=== PATIENT | male | born 1950 | race African-American/Black ===

== ENCOUNTER 2019-10-05 15:40 | Emergency (ER) | payer OTHER, MEDICAID ==
[~2019-10-05] VITALS: Ht 167.6 cm; Wt 63.5 kg
[2019-10-05 16:17] VITALS: BP 158/78
--- NOTE | 2019-10-05 16:27 | NUR ---
PT PAN BLS TO ER BED 07
[2019-10-05] MEDS ORDERED: HYDROcodone/APAP 10/325 MG 1 TAB TAB PO ONE (16:30)
--- NOTE | 2019-10-05 16:37 | NUR ---
PO PAIN MEDS GIVEN-NADR AT THIS TIME
--- NOTE | 2019-10-05 16:49 | NUR ---
PT TO CT SCAN VIA [facility]
--- NOTE | 2019-10-05 17:18 | NUR ---
PT BACK FROM CT SCAN VIA [facility]
[2019-10-05] MEDS ORDERED: LIDOCAINE/EPI 1% 1:100000 20 ML VIAL INJ ONE (17:40)
--- NOTE | 2019-10-05 18:09 | NUR ---
DR LOERA AT BEDSIDE SUTURING PT.
[2019-10-05 19:10] VITALS: BP 159/82
--- NOTE | 2019-10-05 19:11 | NUR ---
Patient discharged with v/s stable. Written and verbal after care instructions given and explained. Patient alert, oriented and verbalized understanding of instructions. Ambulatory with steady gait. All questions addressed prior to discharge. ID band removed. Patient advised to follow up with PMD. Rx of NORCO 10MG given. Patient educated on indication of medication including possible reaction and side effects. Opportunity to ask questions provided and answered.
--- NOTE | 2019-10-05 19:11 | NUR ---
caterina muniz discharge pt.
== END 2019-10-05 19:11 | disposition home or self-care (01) ==
LOC: MED 15:40
DX: S02.2XXA Fracture of nasal bones, initial encounter for closed fracture (principal); S01.21XA Laceration without foreign body of nose, initial encounter; S01.01XA Laceration without foreign body of scalp, initial encounter; I10 Essential (primary) hypertension; E78.5 Hyperlipidemia, unspecified; E11.9 Type 2 diabetes mellitus without complications; J45.909 Unspecified asthma, uncomplicated; V89.2XXA Person injured in unspecified motor-vehicle accident, traffic, initial encounter; Y93.89 Activity, other specified; Y92.89 Other specified places as the place of occurrence of the external cause; Y99.8 Other external cause status
CPT/HCPCS: 12004; 12013; 70450; 70486; 72125; 99285; J2001

== ENCOUNTER 2019-10-06 15:26 | Emergency (ER) | payer OTHER, MEDICAID ==
[~2019-10-06] VITALS: Ht 165.1 cm; Wt 52.3 kg
--- NOTE | 2019-10-06 15:37 | NUR ---
Patient ambulated to bed 4. RN evaluating patient at bedside.
[2019-10-06] MEDS ORDERED: ONDANSETRON 4 MG/2 ML VIAL IVP ONE (15:50)
[2019-10-06] MEDS ORDERED: MORPHINE SULFATE 4 MG/ML SYR IVP ONE (15:50)
[2019-10-06] MEDS ORDERED: MORPHINE SULFATE 4 MG/ML SYR ONE (15:54)
[2019-10-06] MEDS ORDERED: ONDANSETRON 4 MG/2 ML VIAL ONE (15:55)
[2019-10-06 16:00] VITALS: BP 145/98
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
--- NOTE | 2019-10-06 16:10 | NUR ---
ERMD AT BEDSIDE EVALUATING PT
[2019-10-06] MEDS ORDERED: MORPHINE SULFATE 4 MG/ML SYR IVP STA (16:18)
[2019-10-06] MEDS ORDERED: ONDANSETRON 4 MG/2 ML VIAL IVP STA (16:18)
[2019-10-06 16:19] LABS: BASOPHILS % (AUTO) 0.6 % (0.0-2.0); EOSINOPHILS # (AUTO) 0.1 K/uL (0-0.4); EOSINOPHILS % (AUTO) 1.3 % (0.0-4.0); HEMATOCRIT 44.1 % (36-52); HEMOGLOBIN 14.3 g/dL (12.0-18.0); LYMPHOCYTES # (AUTO) 1.8 K/uL (2.0-11.5); LYMPHOCYTES % (AUTO) 25.2 % (20.5-51.1); MEAN CORPUSCULAR HEMOGLOBIN 29 pg (27-31); MEAN CORPUSCULAR HGB CONC 33 g/dL (33-37); MONOCYTES # (AUTO) 0.9 K/uL (0.8-1.0); MONOCYTES % (AUTO) 12.9 % (1.7-9.3); NEUTROPHILS # (AUTO) 4.4 K/uL (1.8-7.7); PLATELET COUNT (AUTO) 261 K/uL (140-450); RED BLOOD CELL COUNT(AUTO) 5.01 MIL/uL (4.20-6.10); RED CELL DISTRIBUTION WIDTH 14.4 % (11.6-13.7); WHITE BLOOD COUNT (AUTO) 7.3 K/uL (4.8-10.8)
[2019-10-06 16:31] LABS: PROTHROMBIN TIME 10.3 secs (10.8-13.4)
[2019-10-06 16:36] LABS: ANION GAP 11.2 (8-16); CARBON DIOXIDE 31.9 mmol/L (21-32); CREATININE 1.1 mg/dL (0.6-1.3); POTASSIUM 4.1 mmol/L (3.5-5.1); TOTAL BILIRUBIN 0.6 mg/dL (0.0-1.0)
--- NOTE | 2019-10-06 16:55 | NUR ---
PT IS BEING TAKEN TO CT SCAN VIA [facility].
--- NOTE | 2019-10-06 17:51 | NUR ---
Patient returned from CT scan. RN re-evaluating the patient at bedside.
--- NOTE | 2019-10-06 17:51 | NUR ---
PT RETURN FROM CT VIA [facility]
--- NOTE | 2019-10-06 18:10 | NUR ---
PT RESTING IN BED, NO NEW NEEDS AT THIS TIME.
--- NOTE | 2019-10-06 18:19 | NUR ---
PROVIDED PT WITH CUP OF WATER AND SOCKS PER REQUEST
--- NOTE | 2019-10-06 19:04 | NUR ---
IV removed, catheter intact and site benign. Applied folded 4x4 gauze and tape to stop bleeding.
[2019-10-06 19:05] VITALS: BP 141/93
--- NOTE | 2019-10-06 19:05 | NUR ---
Patient discharged with v/s stable. Written and verbal after care instructions given and explained. Patient alert, oriented and verbalized understanding of instructions. Ambulatory with steady gait. All questions addressed prior to discharge. ID band removed. Patient advised to follow up with PMD. Rx of Robaxin and Robaxin given. Patient educated on indication of medication including possible reaction and side effects. Opportunity to ask questions provided and answered.
[2019-10-06 20:02] LABS: APPEARANCE,URINE CLEAR (CLEAR); BILIRUBIN,URINE 1+ (NEGATIVE); BLOOD, URINE NEGATIVE (NEGATIVE); LEUKOCYTE ESTERASE ,URINE NEGATIVE (NEGATIVE); NITRITE, URINE NEGATIVE (NEGATIVE); UGLUCOSE NEGATIVE (NEGATIVE)
[2019-10-06 20:03] LABS: COLOR,URINE AMBER (YELLOW)
== END 2019-10-06 19:05 | disposition home or self-care (01) ==
LOC: MED 15:26
DX: S02.2XXA Fracture of nasal bones, initial encounter for closed fracture (principal); E11.9 Type 2 diabetes mellitus without complications; E78.5 Hyperlipidemia, unspecified; I10 Essential (primary) hypertension; I25.10 Atherosclerotic heart disease of native coronary artery without angina pectoris; J45.909 Unspecified asthma, uncomplicated; V89.2XXA Person injured in unspecified motor-vehicle accident, traffic, initial encounter; Y93.89 Activity, other specified; Y92.89 Other specified places as the place of occurrence of the external cause; Y99.8 Other external cause status
CPT/HCPCS: 36415; 70450; 71260; 72128; 72131; 74177; 80053; 81003; 83690; 84484; 85025; 85610; 96374; 96375; 99285; J2270; J2405; Q9967

== ENCOUNTER 2019-10-11 10:11 | Emergency (ER) | payer OTHER, MEDICAID ==
[~2019-10-11] VITALS: Ht 167.6 cm; Wt 50.9 kg
[2019-10-11 10:43] VITALS: BP 133/72
--- NOTE | 2019-10-11 10:45 | NUR ---
Patient ambulated to chair A. RN evaluating patient.
--- NOTE | 2019-10-11 11:06 | NUR ---
.keyshawn adkins at chair side doin wound dressing
[2019-10-11 11:58] VITALS: BP 133/72
== END 2019-10-11 11:59 | disposition home or self-care (01) ==
LOC: MED 10:11
DX: S02.2XXG Fracture of nasal bones, subsequent encounter for fracture with delayed healing (principal); S02.8 Fractures of other specified skull and facial bones; S01.01XD Laceration without foreign body of scalp, subsequent encounter; S01.81XD Laceration without foreign body of other part of head, subsequent encounter; I11.9 Hypertensive heart disease without heart failure; J45.909 Unspecified asthma, uncomplicated; E11.9 Type 2 diabetes mellitus without complications; V49.9XXD Car occupant (driver) (passenger) injured in unspecified traffic accident, subsequent encounter; Z48.00 Encounter for change or removal of nonsurgical wound dressing
CPT/HCPCS: 99282